=== PATIENT | male | born 1965 | race Caucasian/White ===

== ENCOUNTER → 2024-04-01 14:29 | Outpatient (REF) | payer MEDICARE, SELFPAY ==
[2024-04-01 16:03] LABS: Total Cholesterol 147 mg/dl (50-199); Triglyceride 89 mg/dl (10-149); Very Low Density Lipoprotein 17 mg/dl (0-30)
[2024-04-01 17:08] LABS: HDL Cholesterol 43 mg/dl; LDL Cholesterol, Calculated 87 mg/dl
== END ==
LOC: REG 14:29
PROVIDERS: ATTENDING PHYSICIAN Internal Medicine; OTHER PHYSICIAN Internal Medicine Transplant Hepatology
DX: K70.31 Alcoholic cirrhosis of liver with ascites (principal); Z94.4 Liver transplant status; G62.89 Other specified polyneuropathies; Z00.00 Encounter for general adult medical examination without abnormal findings; Z12.5 Encounter for screening for malignant neoplasm of prostate
CPT/HCPCS: 36415; 80061